=== PATIENT | male | born 1975 | race American Indian/Alaskan Native ===

== ENCOUNTER 2018-07-07 05:03 | Emergency (ER) | payer OTHER ==
[2018-07-07 05:32] VITALS: BP 154/102
[2018-07-07] MEDS ORDERED: NORCO 5/325 PO ONE (06:32)
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
== END 2018-07-07 07:59 | disposition home or self-care (01) ==
LOC: ED 05:03
DX: S29.012A Strain of muscle and tendon of back wall of thorax, initial encounter (principal); M25.511 Pain in right shoulder; F17.200 Nicotine dependence, unspecified, uncomplicated; V87.7XXA Person injured in collision between other specified motor vehicles (traffic), initial encounter; Y93.89 Activity, other specified; Y92.488 Other paved roadways as the place of occurrence of the external cause; Y99.8 Other external cause status
CPT/HCPCS: 99283